=== PATIENT | female | born 1980 | race Caucasian/White ===

== ENCOUNTER → 2017-11-24 11:51 | Outpatient (CLI) | payer OTHER, SELFPAY ==
[2017-11-24 12:32] LABS: Appearance Urine UA CLEAR; Bilirubin Urine UA NEGATIVE (NEGATIVE); Color Urine UA YELLOW; Glucose Urine UA NEGATIVE (Normal); Ketones Urine UA NEGATIVE (NEGATIVE); Leukocyte Esterase Urine UA NEGATIVE (NEGATIVE); Nitrite Urine UA Negative (Negative); Occult Blood Urine UA NEGATIVE (Negative); Protein Urine UA NEGATIVE (Negative); Specific Gravity Urine UA 1.025 (1.000-1.035); Urobilinogen Urine UA 0.2 E.U./dL (0.2); pH Urine UA 5.5 (4.5-8.0)
[2017-11-24 12:47] LABS: Add Manual Diff / Slide Review NO; Basophils Percent Auto 0.4 % (0-2); Eosinophils Percent Auto 2.9 % (2-4); Hematocrit 42.9 % (36-46); Hemoglobin 14.5 g/dL (12.0-16.0); Lymphocytes Percent Auto 22.2 % (25-40); Mean Corpuscular HGB Conc 33.8 % (30-36); Mean Corpuscular Hemoglobin 31.9 PG (26-34); Mean Corpuscular Volume 94.4 fL (80-100); Neutrophils Absolute Auto 3200 /uL (3000-5900); Neutrophils Percent Auto 63.5 % (50-75); Platelet Count 236 X10^3/uL (150-400); Red Blood Cell Count 4.55 X10^6/uL (4.0-5.2); Red Cell Distribution Width 13.6 % (11.6-14.8); White Blood Cell Count 5.1 X10^3/uL (4.5-11.0)
[2017-11-24 14:22] LABS: Thyroid Stimulating Hormone 6.15 uIU/mL (0.47-4.68)
[2017-11-24 18:23] LABS: HIV 1 and 2 Antibody NEGATIVE (NEGATIVE); Hep C Virus Ab w/Reflex Quant NEGATIVE s/c (NEGATIVE); Hepatitis B Surface Antigen NEGATIVE s/c (NEGATIVE)
[2017-11-26 14:35] LABS: HSV 2 IGG AB < 0.90 index (< 0.90)
[2017-11-27 13:15] LABS: Rapid Plasma Reagin NON-REACTIVE
== END ==
PROVIDERS: Visit Provider Obstetrics & Gynecology
DX: Z34.81 Encounter for supervision of other normal pregnancy, first trimester (principal); Z3A.01 Less than 8 weeks gestation of pregnancy; E03.9 Hypothyroidism, unspecified
CPT/HCPCS: 36415; 80055; 81003; 84443; 86695; 86696; 86703; 86787; 86803; 86850; 86900; 86901; 87086

== ENCOUNTER → 2018-01-21 11:34 | Outpatient (CLI) | payer OTHER, MEDICAID, SELFPAY ==
[2018-01-21 13:42] LABS: Free T4, Direct Thyroxine 0.85 ng/dL (0.78-2.19)
[2018-01-21 13:56] LABS: Thyroid Stimulating Hormone 2.26 uIU/mL (0.47-4.68)
[2018-01-27 14:46] LABS: AFP, Serum 29.9 ng/mL; Calc Gestational Age 17.7; Cigarette Smoker NOT GIVEN; Donated Egg NOT GIVEN; Donor Egg Age NOT GIVEN; Estriol, Free 0.81 ng/mL; Inhibin A, Dimeric 129 pg/mL; Maternal Ethnicity HISPANIC; Maternal Weight 202 lbs; Number of Fetuses 1; Previous Pregnancy Down Syndro NOT GIVEN; hCG, MoM 1.53; hCG, Serum 33.7 IU/mL
== END ==
PROVIDERS: Visit Provider Obstetrics & Gynecology
DX: Z34.82 Encounter for supervision of other normal pregnancy, second trimester (principal); E03.9 Hypothyroidism, unspecified; Z34.92 Encounter for supervision of normal pregnancy, unspecified, second trimester
CPT/HCPCS: 36415; 82105; 82677; 84439; 84443; 84702; 86336

== ENCOUNTER → 2018-02-24 10:41 | Outpatient (CLI) | payer OTHER, MEDICAID, SELFPAY ==
--- NOTE | 2018-02-24 10:42 | DI.US.S_ITS ---
PROCEDURE: US OB >= 14 WEEKS FETUS INDICATIONS: anatomy survey OUTSIDE/PRIOR DATING DATA: Last menstrual period (LMP): 09/19/17. LMP-based estimated date of delivery (LORI): 06/26/18. First dating scan (date and location): 12/03/17. Estimated date of delivery (LORI) from first dating scan: 06/23/18. TECHNIQUE: Real-time scanning was performed of the fetus, with image documentation and biometric measurements. Endovaginal scanning: No COMPARISON: [facility], , OB >= 14 WEEKS FETUS, 01/21/2018, 11:23. FINDINGS: General: A single living intrauterine gestation is present. Presentation: Breech. Placenta: Placental position is posterior, without previa. Amniotic fluid index: 18.9 cm, normal range is 5-24 cm. heart rate: 137 beats per minute. Maternal cervical canal: 5.5 cm long. Normal lower limit is 2.5 cm. biometrics: Biparietal diameter: 23 weeks Head circumference: 23 weeks 2 days Abdominal circumference: 23 weeks 2 days Femur length: 23 weeks 3 days Estimated gestational age from initial scan: 23 weeks Composite gestational age from present scan: 23 weeks 2 days Estimated weight and percentile: 584 g; 59 percentile Measurement variability for biometric dating: +/- 7 days from 14 weeks to 15 weeks 6 days gestation, +/- 10 days from 16 weeks to 21 weeks 6 days gestation, +/- 2 weeks from 22 weeks to 27 weeks 6 days gestation, +/- 3 weeks for 28 weeks gestation or later. weight reference: 4500 g or EFW >90/95% is considered macrosomia or large for gestational age. EFW <10% is small for gestational age. EFW 5% or less is considered intra-uterine growth restriction. Anatomic survey: Neuro: Ventricles are non-dilated at less than 10 mm. Cisterna magna is normal at 3-11 mm. Cerebellum is normal in size and morphology. Nuchal skin fold: Normal at less than 6 mm between 14-21 weeks gestational age. Face: Nose and lips, facial profile are normal. Spine: No evidence for spina bifida. Heart: 4-chambered heart is present, with normal ventricular outflow tracts. Diaphragm: Diaphragm is intact. Stomach: Left-sided stomach is present. Kidneys: No hydronephrosis. Normal is less than 5 mm in 2nd trimester, less than 7 mm in 3rd trimester. Cord: 3-vessel cord has orthotopic insertion. Bladder: Normal in size. Extremities: All 4 extremities identified. IMPRESSION: 1. Single living IUP we demonstrated an interval growth is normal. 2. Normal anatomy. Dictated by: Philip HEARD Interpreted: Kena Torre MD on 02/24/2018 at 13:06 Approved by: Kena Torre M.D. on 02/24/2018 at 16:08
== END ==
PROVIDERS: Visit Provider Obstetrics & Gynecology
DX: Z3A.23 23 weeks gestation of pregnancy (principal); Z34.82 Encounter for supervision of other normal pregnancy, second trimester
CPT/HCPCS: 76811

== ENCOUNTER → 2018-03-24 10:40 | Outpatient (CLI) | payer OTHER, MEDICAID, SELFPAY ==
[2018-03-24 12:12] LABS: Hemoglobin 12.8 g/dL (12.0-16.0)
[2018-03-24 12:36] LABS: GTT (PREG) 1 Hour PP 50gm Dose 132 mg/dL (76-139)
[2018-03-24 13:01] LABS: Free T4, Direct Thyroxine 0.83 ng/dL (0.78-2.19)
[2018-03-24 13:15] LABS: Thyroid Stimulating Hormone 1.43 uIU/mL (0.47-4.68)
== END ==
PROVIDERS: PCP Nurse Practitioner Family; Visit Provider Obstetrics & Gynecology
DX: E03.9 Hypothyroidism, unspecified (principal); Z34.82 Encounter for supervision of other normal pregnancy, second trimester
CPT/HCPCS: 36415; 82950; 84439; 84443; 85014; 85018

== ENCOUNTER 2018-05-25 15:54 | Outpatient (CLI) | payer OTHER, MEDICAID, SELFPAY ==
[2018-05-26 11:50] LABS: Strep Grp B PCR POS for Grp B Strep
== END 2018-05-25 17:10 | disposition home or self-care (01) ==
LOC: LABOR 16:11 → OB 05-26 12:24
PROVIDERS: PCP Nurse Practitioner Family; Visit Provider Obstetrics & Gynecology
DX: O36.8130 Decreased fetal movements, third trimester, not applicable or unspecified (principal); Z3A.35 35 weeks gestation of pregnancy
CPT/HCPCS: 59025; 87653; G0378; G0379

== ENCOUNTER 2018-06-08 15:28 | Outpatient (CLI) | payer OTHER, MEDICAID, SELFPAY ==
--- NOTE | 2018-06-08 16:21 | PM.OBTRLD ---
Visit Information Visit Information Date of evaluation: 06/08/18 Primary OB Provider: Emma Estrada On-call OB Provider: No Talley Reason for Evaluation: Yes non-stress test non-stress test reason: other (Decreased amniotic fluid) Evaluation Evaluation Baseline heart rate: 130 Variability: Moderate (11-25) monitor accelerations: Present monitor decelerations: Absent Diagnosis, Plan/Disposition Final Diagnosis (1) ANGELINE (amniotic fluid index) decreased: Current Visit: Yes Status: Acute (2) 37 weeks gestation of : Current Visit: Yes Status: Acute Plan/Disposition Plan: Follow-up in 2 days OB Disposition: home
== END 2018-06-08 16:24 | disposition home or self-care (01) ==
LOC: LABOR 15:45 → OB 06-11 10:57
PROVIDERS: PCP Nurse Practitioner Family; Visit Provider Specialist
DX: O41.03X0 Oligohydramnios, third trimester, not applicable or unspecified (principal); Z3A.37 37 weeks gestation of pregnancy
CPT/HCPCS: 59025; G0378; G0379

== ENCOUNTER 2018-06-10 13:25 | Outpatient (CLI) | payer OTHER, MEDICAID, SELFPAY | END 2018-06-10 14:30 | disposition home or self-care (01) | LOC: LABOR 13:45 → OB 06-11 10:49 | PROVIDERS: PCP Nurse Practitioner Family; Visit Provider Obstetrics & Gynecology | DX: O41.00X0 Oligohydramnios, unspecified trimester, not applicable or unspecified (principal); Z3A.37 37 weeks gestation of pregnancy | CPT/HCPCS: 59025; G0378; G0379 ==

== ENCOUNTER → 2018-06-12 08:00 | Outpatient (CLI) | payer OTHER, MEDICAID, SELFPAY | PROVIDERS: PCP Nurse Practitioner Family; Visit Provider Obstetrics & Gynecology | DX: O09.523 Supervision of elderly multigravida, third trimester (principal); Z3A.37 37 weeks gestation of pregnancy | CPT/HCPCS: 59025 ==

== ENCOUNTER 2018-06-13 10:30 | Outpatient (CLI) | payer OTHER, MEDICAID, SELFPAY ==
--- NOTE | 2018-06-13 11:01 | PM.OBTRLD ---
Visit Information Visit Information Date of evaluation: 06/13/18 Primary OB Provider: Emma Estrada On-call OB Provider: Sabine Quach Reason for Evaluation: Yes non-stress test non-stress test reason: decreased movement Exam Vital Signs (past 8 hours): BP 123/82 HR 100 Evaluation Evaluation Baseline heart rate: 145 Variability: Moderate (11-25) monitor accelerations: Present monitor decelerations: Absent Contraction Frequency (minutes): 0 Diagnosis, Plan/Disposition Final Diagnosis (1) 38 weeks gestation of : Current Visit: Yes Status: Acute (2) ANGELINE (amniotic fluid index) decreased: Current Visit: No Status: Acute Plan/Disposition Plan: 37-year-old at 38 weeks gestation with known oligohydramnios. She came in today due to decreased movement. NST was reactive and patient reassured. No contractions. She is scheduled for induction in 2 days for oligohydramnios.
== END 2018-06-13 11:00 | disposition home or self-care (01) ==
LOC: LABOR 10:57 → OB 06-16 06:54
PROVIDERS: PCP Nurse Practitioner Family; Visit Provider Obstetrics & Gynecology
DX: O41.03X0 Oligohydramnios, third trimester, not applicable or unspecified (principal); O36.8130 Decreased fetal movements, third trimester, not applicable or unspecified; Z3A.38 38 weeks gestation of pregnancy
CPT/HCPCS: 59025; G0378; G0379

== ENCOUNTER 2018-06-14 11:26 | Outpatient (CLI) | payer OTHER, MEDICAID, SELFPAY | END 2018-06-14 12:40 | disposition home or self-care (01) | LOC: OB 06-16 06:55 | PROVIDERS: PCP Nurse Practitioner Family; Visit Provider Obstetrics & Gynecology | DX: O41.03X0 Oligohydramnios, third trimester, not applicable or unspecified (principal); O47.1 False labor at or after 37 completed weeks of gestation; Z3A.38 38 weeks gestation of pregnancy | CPT/HCPCS: 59025; G0378; G0379 ==

== ENCOUNTER 2018-06-15 20:04 | Observation (INO) | payer OTHER, MEDICAID, SELFPAY ==
[2018-06-15] MEDS: miSOPROStol 25 MCG TABLET VAG (21:00)
[2018-06-15 21:24] VITALS: BP 131/85
[2018-06-15 21:39] LABS: Add Manual Diff / Slide Review NO; Basophils Absolute Auto 100 /uL (0-100); Eosinophils Absolute Auto 100 /uL (0-450); Eosinophils Percent Auto 1.3 % (2-4); Hematocrit 41.6 % (36-46); Hemoglobin 14.3 g/dL (12.0-16.0); Lymphocytes Absolute Auto 1500 /uL (1100-4500); Lymphocytes Percent Auto 18.7 % (25-40); Mean Corpuscular HGB Conc 34.2 % (30-36); Mean Corpuscular Hemoglobin 33.6 PG (26-34); Mean Corpuscular Volume 98.1 fL (80-100); Monocytes Absolute Auto 800 /uL (0-900); Monocytes Percent Auto 10.5 % (3-14); Neutrophils Absolute Auto 5400 /uL (1500-7000); Neutrophils Percent Auto 68.5 % (50-75); Platelet Count 225 X10^3/uL (150-400); Red Blood Cell Count 4.24 X10^6/uL (4.0-5.2); Red Cell Distribution Width 13.2 % (11.6-14.8); White Blood Cell Count 7.9 X10^3/uL (4.5-11.0)
== END 2018-06-16 08:55 | disposition home or self-care (01) ==
PROVIDERS: Admitting Provider Obstetrics & Gynecology; PCP Nurse Practitioner Family; Visit Provider Obstetrics & Gynecology
DX: O41.03X0 Oligohydramnios, third trimester, not applicable or unspecified (principal); Z3A.38 38 weeks gestation of pregnancy
CPT/HCPCS: 59025; 59050; 59200; 85025; 86850; 86900; 86901; G0378; G0379

== ENCOUNTER 2018-06-16 19:57 | Inpatient (IN) | payer OTHER, MEDICAID, SELFPAY ==
[2018-06-16] MEDS: miSOPROStol 25 MCG TABLET VAG (20:54)
[2018-06-16 22:32] VITALS: BP 105/59
[2018-06-17] MEDS: miSOPROStol 25 MCG TABLET VAG (01:09)
[2018-06-17] MEDS: LACTATED RINGERS 1,000 ML 100 ML IV ×3 (07:24→20:15)
[2018-06-17] MEDS: OXYTOCIN PREMIX 30 UNIT/500 ML PLAST..BAG IV (07:24)
[2018-06-17] MEDS: PENICILLIN G POTASSIUM 5,000,000 UNIT in DEXTROSE 5% IN WATER 250 ML IV (07:25)
[2018-06-17] MEDS: PENICILLIN G POTASSIUM 3,000,000 UNIT/50 ML FROZ.PIGGY 100 UNIT IV (11:11)
--- NOTE | 2018-06-17 17:51 | PM.PREOP ---
Pre-operative Note Interval Note History & Physical reviewed/Exam performed by Physician: Yes Changes to H&P: No
[2018-06-17] MEDS: CEFAZOLIN 2 GM/100 ML FROZ.PIGGY IV (18:12)
--- NOTE | 2018-06-17 18:41 | SUR.OPER ---
Supine on Padded OR bed, head on pillow, safety belt at thigh, arms secured on padded arm boards at <90 degrees abduction. Bump under right buttock. Legs uncrossed with pillow under knees, gel pad to heels, tape over blanket to lower legs.
--- NOTE | 2018-06-17 18:51 | SUR.OPER ---
heart tones 150s TOB at 18:33 Cord blood x 2 and placenta were given to OB nurse.
[2018-06-17 19:13] VITALS: BP 123/58; PULSE 108; RESP 17; TEMP 37.3; O2SAT 99
[2018-06-17 19:18] VITALS: BP 129/66; PULSE 95; RESP 18; O2SAT 100
[2018-06-17] MEDS: MEPERIDINE 100 MG/ML 25 MG IV (19:20)
--- NOTE | 2018-06-17 19:22 | P.OP_ITS ---
Operative Date/Time/Diagnoses Date of procedure: 06/17/18 Time of procedure: 19:18 Pre-op diagnosis: 38+5 weeks tachycardia intolerance of labor Oligohydramnios Post-op diagnosis: same Procedure: Procedures Operation Date: 06/17/18 18:15 Actual Procedures Side Surgeon p Section Emma Estrada MD Indications: 38+ 5 weeks gestation Oligohydramnios tachycardia intolerance of labor Stage I arrest of labor Surgeon: Emma Estrada Major Gifts Director: No Talley Anesthesia Type: Spinal (With Duramorph) Operative Notes Findings: Live male Normal uterus, tubes, and ovaries Small placenta that is very calcified Closure Type: primary Specimen(s): other (Cord blood, cord pH) Applied: catheter Estimated blood loss (mL): 500 Blood products transfused: none Procedure in detail: The patient was taken to the operating room where she was placed in the seated position. Spinal anesthesia was administered. She was then placed in the dorsal supine position with a leftward tilt. She was prepped and draped in the usual sterile fashion. A timeout was performed. After spinal analgesia was found to be adequate, a Pfannenstiel skin incision was made 2 fingerbreadths above the pubic symphysis and carried through to the underlying layer fascia. The fascia was nicked in the midline, and the incision extended bilaterally with the Sampson scissors. The superior aspect of the fascial incision was grasped with a Virginia clamps, elevated, and the underlying rectus muscles dissected off sharply and bluntly. Attention was then turned to the inferior aspect of this incision which in a similar fashion was grasped with a Virginia clamps, elevated, and the underlying rectus muscles dissected off sharply and bluntly. The rectus muscles were in the midline. The peritoneum was identified, grasped between 2 hemostats, and entered sharply with the Metzenbaum scissors. This incision was extended superiorly and inferiorly with good visualization of the bladder. The bladder blade was inserted. The vesicouterine peritoneum was identified, grasped with the pickup, and entered sharply with the Metzenbaum scissors. This incision was extended bilaterally, and the bladder flap was created digitally. The bladder blade was reinserted. The lower uterine segment was incised in a transverse fashion with the scalpel. Upon entering the amniotic sac there was a very small amount of clear amniotic fluid. The infant's head was delivered without difficulty. The nose and mouth were suctioned with bulb suction. The remainder of the body delivered without difficulty. The cord was double clamped and cut. The infant was handed off to waiting RN and RT. Cord bloods were obtained. A piece of cord for cord pH was obtained. The placenta was delivered manually. The uterus was cleared of all clots and debris. The uterine incision was repaired with #1 chromic in a running interlocking fashion, and a second layer the same suture was used for an imbricating layer. Hemostasis was achieved. The tubes and ovaries were examined and were found to be normal. The gutters were cleared of all clots and debris. The bladder flap was reapproximated using 2-0 Vicryl in a running fashion. The parietal peritoneum was closed using 2-0 Vicryl in a running fashion. The fascia was reapproximated using 0 Vicryl in a running fashion. Subcutaneous layer was copiously irrigated with warm normal saline. 3 simple interrupted sutures of 3-0 Vicryl were placed to reapproximate the subcutaneous layer. The skin was closed with 4-0 undyed Vicryl in a subcuticular fashion. Steri-Strips were placed. An Aquacel dressing was placed. The uterus was expressed of a small amount of old blood. Sponge, lap, and instrument counts were correct x-2. The patient tolerated the procedure well, and was taken to PACU in stable condition. Complications: none Post-operative Condition: stable Disposition: PACU Plan for aftercare: To the Center after recovery
[2018-06-17 19:23] VITALS: BP 143/62; PULSE 99; RESP 20; O2SAT 100
--- NOTE | 2018-06-17 19:23 | PM.OBPNLAB ---
Date/Time Date Patient Seen: 06/17/18 Time Patient Seen: 17:30 Pain Control Pain control: epidural Comments: Patient's pain not well controlled Pelvic Exam Dilation (cm): 3 Effacement (%): 80 station: -1 Amniotic membrane status: Ruptured Contractions Pitocin rate (mU/min): 5 Contraction frequency (min): 3 Contraction duration (min): 1 Contraction pattern: Regular Contraction intensity: Strong/Firm Intrauterine tone measurement: 180 Status status: Category ll Heart Rate Baseline: 170 Monitor Accelerations: Absent Monitor Decelerations: Recurrent Monitor Variability: Minimal Assessment and Plan Assessment: other Plan:
[2018-06-17 19:28] VITALS: BP 135/62; PULSE 97; RESP 13; O2SAT 100
[2018-06-17 19:32] VITALS: BP 139/63; PULSE 95; RESP 10; O2SAT 100
[2018-06-17 19:38] VITALS: BP 140/58; PULSE 97; RESP 12; O2SAT 100
--- NOTE | 2018-06-17 19:52 | SUR.PHASEI ---
Report called to Gabby. Gabby came to PACU to check bleeding. RN expressed mod to large amt of blood with clots. Pt cleaned, pads changed. Pt transferred to the center. VS stable. Spinal at t10. IV saline locked.
[2018-06-17] MEDS: LIDOCAINE VISCOUS 2% 15 ML SOLUTION PO (23:40)
[2018-06-17] MEDS: ONDANSETRON 4 MG/2 ML INJ IV (23:40)
[2018-06-17] MEDS: METOCLOPRAMIDE 10 MG/2 ML INJ IV (23:45)
[2018-06-18] MEDS: KETOROLAC 30 MG/ML VIAL IV ×2 (01:20→07:33)
[2018-06-18 05:54] LABS: Hematocrit 36.5 % (36-46); Hemoglobin 12.7 g/dL (12.0-16.0)
[2018-06-18] MEDS: ACETAMINOPHEN 325 MG TABLET 650 MG PO (07:32)
[2018-06-18] MEDS: DOCUSATE 250 MG CAPSULE PO (07:32)
--- NOTE | 2018-06-18 18:06 | PM.OBPN.1 ---
Subjective - OB Patient comments: no complaints, pain well controlled, tolerating diet and flatus present baby status: doing well feeding status: exclusively breast feeding Date Patient Seen: 06/18/18 Time Patient Seen: 18:07 Exam Vital Signs (past 8 hours): Oxygen Delivery Method Room Air Narrative Exam Narrative: Generally: Patient is sitting up in bed, no acute distress Lungs: Clear to auscultation bilaterally Cardiovascular: Regular rate and rhythm Abdomen: Soft, appropriately tender. Good bowel sounds Fundus: Firm at U -1 Incision: Clean dry and intact with Aquacel dressing Extremities: Negative Homans, no edema Objective Labs Result Diagrams: 06/18/18 05:45 Labs: Laboratory Results - last 24 hr 06/18/18 05:45 Hgb 12.7 Hct 36.5 Assessment & Plan Plan day: 1 plan OB: routine postop care Comments: D/C boss D/C IV once taking good PO Time Spent With Patient Total time spent is greater than 50% in coordination of care (as documented) at patient's floor/unit and/or counseling patient: 15-24 minutes
[2018-06-18 20:29] VITALS: BP 124/80; PULSE 100; RESP 16; TEMP 37
[2018-06-18 20:47] VITALS: TEMP 37.2
[2018-06-18] MEDS: IBUPROFEN 600 MG TABLET PO (20:47)
[2018-06-19] MEDS: IBUPROFEN 600 MG TABLET PO ×2 (03:19→09:08)
[2018-06-19] MEDS: DOCUSATE 250 MG CAPSULE PO (09:07)
[2018-06-19] MEDS: PRENATAL VIT,CALC/IRON/FOLIC 1 TABLET 1 TAB PO (09:08)
[2018-06-19] MEDS: ACETAMINOPHEN 325 MG TABLET 650 MG PO (11:54)
--- NOTE | 2018-06-20 04:10 | P.DS_ITS ---
Discharge Providers Date of admission: 06/16/18 19:57 Discharge Date: 06/19/18 Primary care physician: KEIHT Wheeler Consults: 06/17/18 22:54 Consult to Graphic Art Sales Representative Routine Comment: Discharge provider: Emma Estrada MD Summary Date Patient Seen: 06/19/18 Time Patient Seen: 12:15 Procedures: Cytotec cervical ripening Pitocin induction of labor Artificial rupture of membrane Primary low-transverse section Hospital Course: The patient presented on 06/16/2018 for Cytotec cervical ripening. On the morning of 06/17/2018 she was started on Pitocin. Artificial rupture membranes was performed. An epidural was placed for pain management. The patient progressed to 3 cm, but no further. Baby's heart rate was in the 170s to 180s. The heart rate tracing flattened out with minimal [id number] variability. A decision was made to proceed with a primary low-transverse section. The patient underwent a primary low-transverse section without complication. Her course was unremarkable and she was discharged home on day # 2. Peripartum Data Delivery Method: Section Laceration description: None Episiotomy description: None Procedures: Cytotec cervical ripening Pitocin induction of labor Artificial rupture of membranes Primary low-transverse section complications: none Status at Discharge Cognitive/behavioral status at discharge: oriented Functional status at discharge: independent ambulation Overall status at discharge: patient is progressing back to baseline Time Spent with Patient Total time spent providing and/or coordinating discharge services: Less than 30 minutes Objective Labs Result Diagrams: 06/18/18 05:45 Exam Vital Signs (past 8 hours): Oxygen Delivery Method Room Air Narrative Exam Narrative: Generally: Patient is sitting up in bed, no acute distress Lungs: Clear to auscultation bilaterally Cardiovascular: Regular rate and rhythm Fundal height: U -2 Incision: Clean dry and intact with Aquacel dressing Extremities: Negative Homans, trace edema Discharge Plan Discharge Plan Patient Disposition: Home Discharge comment: Call with fever, chills, redness or drainage around the incision or bleeding vaginally more than a pad in an hour Ibuprofen 600mg every 6 hours as needed Colace (stool softner) once or twice a day as needed Discharge Med Rec/Prescriptions Prescriptions: New oxycodone-acetaminophen [Percocet] 5-325 mg tablet 1 tab PO Q4-6H PRN (Reason: pain) Qty: 20 RF: 0 Continued prenat.vits,susi,gzg-izvv-dmwdu [ Vitamin] tablet 1 tab PO BID-TID RF: 0 levothyroxine 75 mcg tablet 75 mcg PO DAILY RF: 0 Follow up/Referrals: Emma Estrada MD [Physician] - 1 Week ('s nurse will call you with an appointment for June 24) Provider Discharge Instructions Diet: Regular Activity: No heavy lifting Skin/Wound/Dressing Care Report to your healthcare provider any signs of infection, such as:: chills, fever, increased pain, unusual drainage and unusual redness Dressing: Do not remove dressing Visit Report/Discharge Packet Instructions: DI for Discharge Data Primary Care Provider: Lianna Westbrook Attending Provider: Emma Estrada Admit Date/Time: 06/16/18 19:57 Discharges patient from system. Discharge Date/Time: 06/19/18 14:16
== END 2018-06-19 14:16 | disposition home or self-care (01) | DRG 540 ==
PROVIDERS: Admitting Provider Obstetrics & Gynecology; PCP Nurse Practitioner Family; Visit Provider Obstetrics & Gynecology
PROC: 10D00Z1 Extraction of Products of Conception, Low, Open Approach (ICD-10-PCS; CPT 59514; principal; 2018-06-17 18:15)
DX: O41.03X0 Oligohydramnios, third trimester, not applicable or unspecified (principal); Z3A.38 38 weeks gestation of pregnancy; Z37.0 Single live birth; O76 Abnormality in fetal heart rate and rhythm complicating labor and delivery; E03.9 Hypothyroidism, unspecified
CPT/HCPCS: 01967; 01968; 36415; 59025; 59050; 59200; 59514; 85014; 85018; 85025; 86850; 86900; 86901; G0378; G0379; J0690; J1885; J2175; J2405; J2540; J2590; J2765; J3010